=== PATIENT | male | born 1990 ===

== ENCOUNTER 2019-11-28 17:56 | Emergency (ER) | payer OTHER, SELFPAY ==
[2019-11-28 18:00] VITALS: BP 149/82; PULSE 88; RESP 16; TEMP 36.3; O2SAT 97; BMI 31.1
--- NOTE | 2019-11-28 18:02 | XRR_ITS ---
PROCEDURE INFORMATION: Exam: XR Right Wrist Exam date and time: 11/28/2019 6:31 PM Age: 28 years old Clinical indication: Injury or trauma; Fall; Initial encounter; Blunt trauma (contusions or hematomas; Right; Injury date: 11/28/2019; Injury details: PT fell today, RT wrist/hand pain in navicular area. TECHNIQUE: Imaging protocol: XR Right wrist. Views: 3 or more views. COMPARISON: No relevant prior studies available. FINDINGS: Bones/joints: Normal. Soft tissues: Normal. XR/XR wrist RT min 3V* [id number] IMPRESSION: Negative for fracture or dislocation.
--- NOTE | 2019-11-28 18:08 | ED_ITS ---
Entered by Karin Garcia, acting as scribe for Manav Perdomo MD HPI - Extremity Problem General: Chief complaint: Extremity Injury, Upper Stated complaint: right wrist pain Time Seen by Provider: 11/28/19 18:02 Source: patient Mode of arrival: ambulatory Limitations: no limitations History of Present Illness: HPI Narrative: 28 yo male presents to ED with c omplaints of R wrist pain. He said he fell and he caught himself with his R arm behind him, stopping his fall. He fell today. He has pain going down from his thumb to midway on his forearm. Complaint: extremity pain Onset (ago): hour(s) (1.75) Pain Consistency: constant Location: right and upper extremity Severity scale (1-10): 7 Quality: aching Radiation: none Relieving factors: immobilization Exacerbating factors: range of motion and exertion Associated symptoms: Reports no associated symptoms; Deny chest pain, fever(s) or rash Context: other (fall) Review of Systems Const: Denies: fever or chills Eyes: Denies: change in vision ENMT: Denies: throat pain or mouth pain Card: Denies: chest pain Resp: Denies: shortness of breath GI: Denies: abdominal pain, nausea, vomiting or diarrhea Musc: Denies: back pain Skin/Breast: Denies: rash Neuro: Denies: headache or behavioral changes Psych: Denies: depression Endo: Denies: excessive urination Osmar/Lymph: Denies: easy bruising All/Imm: Denies: hives PFSH ED PFSH: Statuses (acute, chronic, etc) shown below reflect problem list status as previously entered and may not be historically accurate Social History Smoking and tobacco status: former smoker Physical Exam Const: COMMON NORMALS: no apparent distress and healthy appearing HENMT: COMMON NORMALS: normocephalic and external nose normal HEAD & SCALP: normocephalic NOSE: external nose normal and no nasal discharge (nasal dischage) Eye: COMMON NORMALS: PERRL PUPIL: Yes PERRL Neck/C-Spine: COMMON NORMALS: full ROM and no lymphadenopathy Chest: COMMONS NORMALS: inspection of chest normal Resp: COMMON NORMALS: normal respiratory effort and clear to auscultation bilaterally AUSCULTATION: clear to auscultation bilaterally Cardio: COMMON NORMALS: regular rate and regular rhythm RATE: regular rate RHYTHM: regular rhythm GI: COMMON NORMALS: soft to palpation PALPATION: Yes soft Extremity: COMMON NORMALS: normal to inspection and normal capillary refill NARRATIVE EXTREMITY EXAM: Anatomic snuffbox tenderness with contusion. Psych: COMMON NORMALS: mental status grossly normal and cooperative Skin: COMMON NORMALS: no rashes or lesions noted GENERAL SKIN EXAM: no rashes or lesions noted Course Vital Signs: Vital signs: Vital Signs Temperature 97.4 F L 11/28/19 18:00 Pulse Rate 88 11/28/19 18:00 Respiratory Rate 16 11/28/19 18:00 Blood Pressure 149/82 11/28/19 18:00 Pulse Oximetry 97 11/28/19 18:00 MDM - Extremity (Nontraumatic) MDM Narrative: Medical decision making narrative: Patient presents with a wrist sprain. He does have bruising to his wrist along with tenderness over scaphoid and mid wrist. No obvious deformity. 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 I informed him he needs to follow-up have a repeat x-ray in 1 week to rule out a scaphoid fracture. He understands and agrees to this plan. Imaging Data^: xr right wrist: Attestation: I personally reviewed and interpreted this imaging study as follows: My impression: no acute fx Discharge Plan Discharge Patient Disposition: Home, Self-Care Clinical Impression: Sprain and strain of wrist Condition: Stable Discharge Orders: Discharge Order (Routine); Ordered 11/28/19 Ordered By: Manav Perdomo Discharge Diet: Advance as tolerated Discharge Activity: Increase activity as tolerated Patient Instructions: Wrist Sprain (ED) Activity Restrictions/Additional Instructions: repeat xr in one week to rule out scaphoid fx. Limit use of right wrist Coding Level of Care Code ED Pump Technician for Chg Fwd The documentation recorded by the Radha quevedo Valerie R, accurately reflects the service I personally performed and the decisions made by Leanne ross Korby, MD Nov 28, 2019 17:56
[2019-11-28 19:09] VITALS: BP 125/78; PULSE 84; RESP 18; O2SAT 96
== END 2019-11-28 18:57 | disposition home or self-care (01) ==
PROVIDERS: Emergency Provider Emergency Medicine
DX: S63.501A Unspecified sprain of right wrist, initial encounter (principal); S66.911A Strain of unspecified muscle, fascia and tendon at wrist and hand level, right hand, initial encounter; W19.XXXA Unspecified fall, initial encounter; Z87.891 Personal history of nicotine dependence
CPT/HCPCS: 73110; 99281

== ENCOUNTER 2023-01-10 14:48 | Outpatient (CLI) | payer OTHER, SELFPAY | END 2023-01-10 14:49 | disposition home or self-care (01) | LOC: SPT 14:49 | PROVIDERS: Visit Provider Podiatrist Foot & Ankle Surgery | DX: Z46.89 Encounter for fitting and adjustment of other specified devices (principal); I87.2 Venous insufficiency (chronic) (peripheral); M79.671 Pain in right foot; M79.672 Pain in left foot; M76.829 Posterior tibial tendinitis, unspecified leg | CPT/HCPCS: 97760; L3030 ==